=== PATIENT | female | born 1955 | race Caucasian/White ===

== ENCOUNTER 2018-06-06 23:04 | Emergency (ER) | payer OTHER, MEDICAID ==
[~2018-06-06] VITALS: Ht 162.6 cm; Wt 63.5 kg
[2018-06-06 23:11] VITALS: Ht 162.6 cm; Wt 63.5 kg
[2018-06-07 00:05] LABS: BASOPHIL % 0.4 % (0-2); PLATELET COUNT 245 x10^3mcL (130-400); RED CELL DISTRIBUTION WIDTH 14.1 % (11.5-14.5)
[2018-06-07 00:24] LABS: CALCIUM 8.7 mg/dL (8.5-10.1); CARBON DIOXIDE 25.1 mmol/L (21-32); CHLORIDE SERUM 103 mmol/L (98-107); CREATININE SERUM 0.8 mg/dL (0.6-1.0); GFR1 > 60 mL/min; GLUCOSE SERUM 104 mg/dL (74-106); POTASSIUM SERUM 3.3 mmol/L (3.5-5.1); SODIUM SERUM 136 mmol/L (136-145)
[2018-06-07 00:33] LABS: ALBUMIN 3.9 g/dL (3.4-5.0); ALKALINE PHOSPHATASE 78 U/L (46-116); ALT/SGPT 26 U/L (14-59); AST/SGOT 19 U/L (15-37); BILIRUBIN TOTAL 0.3 mg/dL (0.20-1.00); TOTAL PROTEIN, SERUM 7.3 g/dL (6.4-8.2)
[2018-06-07 04:21] LABS: AMPHETAMINE QUAL UR NONE DETECTED (See below)
[2018-06-07 10:57] VITALS: BP 118/76
== END 2018-06-07 10:57 | disposition home or self-care (01) ==
LOC: ED 23:04
PROVIDERS: Emergency Medicine
DX: F31.9 Bipolar disorder, unspecified (principal); F60.3 Borderline personality disorder; Z98.890 Other specified postprocedural states; Z88.8 Allergy status to other drugs, medicaments and biological substances
CPT/HCPCS: 36415; G0480; J3486

== ENCOUNTER 2019-03-01 13:03 | Inpatient (IN) | payer OTHER, MEDICAID ==
[~2019-03-01] VITALS: Ht 162.6 cm; Wt 62.6 kg
[2019-03-01 13:39] LABS: BASOPHIL % 0.5 % (0-2); PLATELET COUNT 283 x10^3mcL (130-400)
[2019-03-01 13:56] LABS: CALCIUM 9.1 mg/dL (8.5-10.1); CARBON DIOXIDE 13.8 mmol/L (21-32); POTASSIUM SERUM 3.5 mmol/L (3.5-5.1)
[2019-03-01 14:01] LABS: ALBUMIN 3.7 g/dL (3.4-5.0); BILIRUBIN TOTAL 0.62 mg/dL (0.20-1.00); TOTAL PROTEIN, SERUM 7.3 g/dL (6.4-8.2)
[2019-03-01 14:06] LABS: RED CELL DISTRIBUTION WIDTH 15.2 % (11.5-14.5)
[2019-03-01] MEDS ORDERED: WELLBUTRIN XL300 M1 PO (16:06)
[2019-03-01] MEDS ORDERED: TRAZODONE100 MG PO (16:08)
[2019-03-01] MEDS ORDERED: LAMICTAL25 M2 PO (16:08)
[2019-03-01] MEDS ORDERED: LEVOTHYROXINE0.05 M2 PO (16:09)
[2019-03-01 17:52] VITALS: BP 152/130
[2019-03-01 18:31] VITALS: BP 154/111
[2019-03-01 18:38] VITALS: Ht 162.6 cm; Wt 62.6 kg
[2019-03-01 20:22] VITALS: BP 146/123
[2019-03-02] VITALS (7 sets, daily range): BP systolic 121–190; BP diastolic 79–139
[2019-03-02 06:24] LABS: BASOPHIL % 0.3 % (0-2); PLATELET COUNT 198 x10^3mcL (130-400)
[2019-03-02 06:31] LABS: RED CELL DISTRIBUTION WIDTH 15.9 % (11.5-14.5)
[2019-03-02 07:03] LABS: ALKALINE PHOSPHATASE 60 U/L (46-116); ALT/SGPT 345 U/L (14-59); AST/SGOT 261 U/L (15-37); BILIRUBIN DIRECT 0.16 mg/dL (0.0-0.2); BILIRUBIN TOTAL 0.43 mg/dL (0.20-1.00); CALCIUM 8.3 mg/dL (8.5-10.1); CHLORIDE SERUM 108 mmol/L (98-107); CREATININE SERUM 0.9 mg/dL (0.6-1.0); GFR1 > 60 mL/min; GLUCOSE SERUM 116 mg/dL (74-106); POTASSIUM SERUM 3.4 mmol/L (3.5-5.1); SODIUM SERUM 140 mmol/L (136-145)
[2019-03-02 07:22] LABS: CARBON DIOXIDE 18.2 mmol/L (21-32)
[2019-03-02 07:24] LABS: ALBUMIN 2.8 g/dL (3.4-5.0); TOTAL PROTEIN, SERUM 5.8 g/dL (6.4-8.2)
[2019-03-02 12:26] LABS: BILIRUBIN DIRECT 0.17 mg/dL (0.0-0.2); BILIRUBIN TOTAL 0.5 mg/dL (0.20-1.00)
[2019-03-02 12:27] LABS: ALBUMIN 2.8 g/dL (3.4-5.0); TOTAL PROTEIN, SERUM 6.1 g/dL (6.4-8.2)
[2019-03-03 05:23] VITALS: BP 127/90
[2019-03-03 06:26] LABS: BASOPHIL % 0.3 % (0-2); PLATELET COUNT 199 x10^3mcL (130-400)
[2019-03-03 06:34] LABS: RED CELL DISTRIBUTION WIDTH 15.6 % (11.5-14.5)
[2019-03-03 06:51] LABS: ALKALINE PHOSPHATASE 68 U/L (46-116); BILIRUBIN DIRECT 0.21 mg/dL (0.0-0.2); BILIRUBIN TOTAL 0.6 mg/dL (0.20-1.00); CALCIUM 8.6 mg/dL (8.5-10.1); CARBON DIOXIDE 23.2 mmol/L (21-32); CHLORIDE SERUM 108 mmol/L (98-107); CREATININE SERUM 0.8 mg/dL (0.6-1.0); GFR1 > 60 mL/min; GLUCOSE SERUM 113 mg/dL (74-106); SODIUM SERUM 144 mmol/L (136-145); TOTAL PROTEIN, SERUM 6.9 g/dL (6.4-8.2)
[2019-03-03 06:56] LABS: ALBUMIN 3.2 g/dL (3.4-5.0)
[2019-03-03 06:57] LABS: ALT/SGPT 1128 U/L (14-59); AST/SGOT 1143 U/L (15-37)
[2019-03-03 08:32] VITALS: BP 146/119
[2019-03-03 12:38] VITALS: BP 138/99
[2019-03-03 17:20] VITALS: BP 113/88
[2019-03-03 21:08] VITALS: BP 123/90
[2019-03-04 05:17] LABS: ALKALINE PHOSPHATASE 64 U/L (46-116); BILIRUBIN DIRECT 0.18 mg/dL (0.0-0.2); BILIRUBIN TOTAL 0.52 mg/dL (0.20-1.00); TOTAL PROTEIN, SERUM 6.7 g/dL (6.4-8.2)
[2019-03-04 05:20] VITALS: BP 100/80
[2019-03-04 05:40] LABS: ALT/SGPT 1550 U/L (14-59); AST/SGOT 1186 U/L (15-37)
[2019-03-04 08:48] VITALS: BP 99/74
[2019-03-04 12:42] VITALS: BP 121/99
[2019-03-04 19:37] VITALS: BP 130/108
[2019-03-05 02:48] LABS: ALKALINE PHOSPHATASE 60 U/L (46-116); ALT/SGPT 992 U/L (14-59); AST/SGOT 358 U/L (15-37); BILIRUBIN DIRECT 0.12 mg/dL (0.0-0.2); BILIRUBIN TOTAL 0.29 mg/dL (0.20-1.00); TOTAL PROTEIN, SERUM 6.6 g/dL (6.4-8.2)
[2019-03-05 02:52] LABS: ALBUMIN 2.9 g/dL (3.4-5.0); ALKALINE PHOSPHATASE 62 U/L (46-116); AST/SGOT 371 U/L (15-37); BILIRUBIN TOTAL 0.32 mg/dL (0.20-1.00); CALCIUM 9.5 mg/dL (8.5-10.1); CARBON DIOXIDE 27.7 mmol/L (21-32); CHLORIDE SERUM 105 mmol/L (98-107); CREATININE SERUM 0.7 mg/dL (0.6-1.0); GFR1 > 60 mL/min; GLUCOSE SERUM 117 mg/dL (74-106); POTASSIUM SERUM 4.3 mmol/L (3.5-5.1); SODIUM SERUM 144 mmol/L (136-145); TOTAL PROTEIN, SERUM 6.3 g/dL (6.4-8.2)
[2019-03-05 02:53] LABS: ALT/SGPT 1082 U/L (14-59)
[2019-03-05 05:48] VITALS: BP 111/76
[2019-03-05 07:53] VITALS: BP 111/76
[2019-03-05 09:21] VITALS: BP 136/95
[2019-03-05 15:00] VITALS: BP 103/86
[2019-03-05 17:28] VITALS: BP 142/113
[2019-03-05 19:52] VITALS: BP 111/89
[2019-03-06 05:18] VITALS: BP 115/96
[2019-03-06 06:51] LABS: ALBUMIN 3.6 g/dL (3.4-5.0); ALKALINE PHOSPHATASE 73 U/L (46-116); ALT/SGPT 824 U/L (14-59); AST/SGOT 165 U/L (15-37); BILIRUBIN DIRECT 0.13 mg/dL (0.0-0.2); BILIRUBIN TOTAL 0.4 mg/dL (0.20-1.00); CARBON DIOXIDE 34.1 mmol/L (21-32); CHLORIDE SERUM 100 mmol/L (98-107); CREATININE SERUM 0.8 mg/dL (0.6-1.0); GFR1 > 60 mL/min; GLUCOSE SERUM 102 mg/dL (74-106); POTASSIUM SERUM 4.3 mmol/L (3.5-5.1); SODIUM SERUM 141 mmol/L (136-145); TOTAL PROTEIN, SERUM 7.7 g/dL (6.4-8.2)
[2019-03-06 07:11] LABS: BASOPHIL % 0.3 % (0-2); PLATELET COUNT 256 x10^3mcL (130-400)
[2019-03-06 07:34] LABS: RED CELL DISTRIBUTION WIDTH 15.7 % (11.5-14.5)
[2019-03-06 10:13] VITALS: BP 103/75
[2019-03-06 18:26] VITALS: BP 171/103
[2019-03-06 19:30] VITALS: BP 108/67
[2019-03-07 05:00] VITALS: BP 127/55
[2019-03-07 07:59] LABS: ALKALINE PHOSPHATASE 72 U/L (46-116); ALT/SGPT 546 U/L (14-59); AST/SGOT 85 U/L (15-37); BILIRUBIN DIRECT 0.07 mg/dL (0.0-0.2); BILIRUBIN TOTAL 0.3 mg/dL (0.20-1.00); CALCIUM 9.5 mg/dL (8.5-10.1); CARBON DIOXIDE 30.3 mmol/L (21-32); CHLORIDE SERUM 101 mmol/L (98-107); CREATININE SERUM 0.8 mg/dL (0.6-1.0); GFR1 > 60 mL/min; GLUCOSE SERUM 112 mg/dL (74-106); POTASSIUM SERUM 4.1 mmol/L (3.5-5.1); SODIUM SERUM 138 mmol/L (136-145); TOTAL PROTEIN, SERUM 6.9 g/dL (6.4-8.2)
[2019-03-07 08:00] LABS: ALBUMIN 3.1 g/dL (3.4-5.0)
[2019-03-07 08:16] LABS: BASOPHIL % 0.4 % (0-2); PLATELET COUNT 244 x10^3mcL (130-400)
[2019-03-07 08:22] LABS: RED CELL DISTRIBUTION WIDTH 15.6 % (11.5-14.5)
[2019-03-07 09:15] VITALS: BP 126/69
[2019-03-07 12:13] VITALS: BP 127/80
[2019-03-07 16:32] VITALS: BP 137/81
[2019-03-07 21:22] VITALS: BP 150/87
[2019-03-08 05:07] VITALS: BP 94/56
[2019-03-08 06:56] LABS: BASOPHIL % 0.5 % (0-2); PLATELET COUNT 270 x10^3mcL (130-400)
[2019-03-08 07:03] LABS: RED CELL DISTRIBUTION WIDTH 15.1 % (11.5-14.5)
[2019-03-08 08:10] LABS: CHLORIDE SERUM 102 mmol/L (98-107); POTASSIUM SERUM 4.4 mmol/L (3.5-5.1); SODIUM SERUM 141 mmol/L (136-145)
[2019-03-08 08:11] LABS: ALBUMIN 3.3 g/dL (3.4-5.0); ALKALINE PHOSPHATASE 75 U/L (46-116); ALT/SGPT 446 U/L (14-59); AST/SGOT 83 U/L (15-37); BILIRUBIN DIRECT 0.09 mg/dL (0.0-0.2); CALCIUM 9.8 mg/dL (8.5-10.1); CARBON DIOXIDE 29.9 mmol/L (21-32); CREATININE SERUM 0.7 mg/dL (0.6-1.0); GFR1 > 60 mL/min; GLUCOSE SERUM 95 mg/dL (74-106); TOTAL PROTEIN, SERUM 7.3 g/dL (6.4-8.2)
[2019-03-08 09:15] VITALS: BP 92/66
[2019-03-08] MEDS ORDERED: NOVAPLUS VANCO125 MG PO (13:00)
[2019-03-08 13:46] VITALS: BP 92/66
== END 2019-03-08 15:56 | disposition home or self-care (01) | DRG 384 ==
LOC: ED 13:03 → DU 16:44 → EDBEDREQ 16:48 → DU 18:14 → MU 03-07 11:50
PROVIDERS: Emergency Medicine; Internal Medicine Gastroenterology; ADMIT Internal Medicine
PROC: 0DB78ZX Excision of Stomach, Pylorus, Via Natural or Artificial Opening Endoscopic, Diagnostic (ICD-10-PCS; principal; 2019-03-03 09:00)
PROC: 0DBB8ZX Excision of Ileum, Via Natural or Artificial Opening Endoscopic, Diagnostic (ICD-10-PCS; 2019-03-03 09:00)
DX: K25.7 Chronic gastric ulcer without hemorrhage or perforation (principal); A04.72 Enterocolitis due to Clostridium difficile, not specified as recurrent; K58.9 Irritable bowel syndrome, unspecified; T39.1X1A Poisoning by 4-Aminophenol derivatives, accidental (unintentional), initial encounter; M06.9 Rheumatoid arthritis, unspecified; F95.2 Tourette's disorder; K29.80 Duodenitis without bleeding; F31.9 Bipolar disorder, unspecified; K57.30 Diverticulosis of large intestine without perforation or abscess without bleeding; R74.0 Nonspecific elevation of levels of transaminase and lactic acid dehydrogenase [LDH]; J45.909 Unspecified asthma, uncomplicated; M79.7 Fibromyalgia; Y92.018 Other place in single-family (private) house as the place of occurrence of the external cause; Z98.1 Arthrodesis status; Z98.82 Breast implant status
CPT/HCPCS: 43235; 45378; 82693; 86431; G0480; J0132; J1610; J1885; J2250; J2270; J2310; J2405; J3010; J3480; J3490; J7030; Q0092; Q9967

== ENCOUNTER 2019-08-29 16:00 | Emergency (ER) | payer OTHER, MEDICAID ==
[~2019-08-29] VITALS: Ht 167.6 cm; Wt 63.5 kg
[~2019-08-29 16:00] MED LIST: LAMICTAL25 M2 PO; LEVOTHYROXINE0.05 M2 PO; NOVAPLUS VANCO125 MG PO; TRAZODONE100 MG PO; WELLBUTRIN XL300 M1 PO
[2019-08-29 16:11] VITALS: Ht 167.6 cm; Wt 63.5 kg
[2019-08-29 19:07] VITALS: BP 120/59
== END 2019-08-29 19:07 | disposition home or self-care (01) ==
LOC: ED 16:00
DX: M54.42 Lumbago with sciatica, left side (principal); M79.7 Fibromyalgia; F31.9 Bipolar disorder, unspecified; M06.9 Rheumatoid arthritis, unspecified; Z98.890 Other specified postprocedural states; Z88.8 Allergy status to other drugs, medicaments and biological substances
CPT/HCPCS: J1885